=== PATIENT | male | born 1960 | race Caucasian/White ===

== ENCOUNTER 2016-09-26 13:53 | Emergency (ER) | payer BC ==
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
[2016-09-26 14:54] LABS: CHLORIDE,CL 110 mmol/L (98-110); SODIUM,NA 143 mmol/L (136-146)
--- NOTE | 2016-09-26 15:41 | CR ---
EXAMINATION: Left forearm HISTORY: Pain COMPARISON: None TECHNIQUE: 2 views FINDINGS/IMPRESSION: There is moderate focal soft tissue thickening within the proximal left forearm without an underlying osseous abnormality. Bone mineralization appears normal. No elbow joint effus ion.
[2016-09-26 16:34] VITALS: BP 177/85
== END 2016-09-26 16:09 | disposition home or self-care (01) ==
LOC: MW.ED 13:53
DX: S50.12XA Contusion of left forearm, initial encounter (principal); F17.200 Nicotine dependence, unspecified, uncomplicated; W22.8XXA Striking against or struck by other objects, initial encounter
CPT/HCPCS: 36415; 73090-26-LT; 73090-LT; 80053; 82150; 82248; 83690; 85025; 99282; 99283